=== PATIENT | male | born 1965 | race Two or more races ===

== ENCOUNTER → 2025-01-15 | Outpatient (CLI) | payer MEDICAID, SELFPAY ==
--- NOTE | 2025-01-15 | XR_ITS ---
Examination: Shoulder,right, 3 views Technique: Shoulder AP internal rotation, AP external rotation, Y view shoulder, 3 views Exam date and time :January 15, 2025 1051 hrs. Indications: Right shoulder pain beginning 3 months ago. Findings: Moderate osteopenia. Moderate narrowing glenohumeral joint. No shoulder fracture or dislocation. No calcific tendinitis. Impression:: Moderate narrowing glenohumeral joint.
--- NOTE | 2025-01-15 | XR_ITS ---
Examination: Foot bilateral, 6 views Technique: AP, oblique, lateral views each foot total 6 views Date and time of exam: January 15, 2025 1051 hrs. Indications: Bilateral foot pain beginning 3 months ago Findings: Mild to moderate bilateral narrowing first metatarsophalangeal joints. No fracture or dislocation involving either foot. 3 mm left plantar bony calcaneal spur. No cortical bone destruction. No opaque foreign bodies Impression: Bilateral mild to moderate first metatarsophalangeal joints.
== END | disposition home or self-care (01) ==
LOC: CDIM 10:20
PROVIDERS: PCP Nurse Practitioner; Referring Provider Nurse Practitioner; Visit Provider Nurse Practitioner
DX: M79.671 Pain in right foot (principal); M79.672 Pain in left foot; M25.811 Other specified joint disorders, right shoulder
CPT/HCPCS: 73030; 73630

== ENCOUNTER → 2025-03-19 | Outpatient (CLI) | payer MEDICAID, SELFPAY ==
--- NOTE | 2025-03-19 14:30 | ECHO_ITS ---
Transthoracic Echo Report Ht (in): 69 Wt (lb): 155 Exam Location: Echo Lab Status: Preadmit All Source Intelligence: LEONARDO Malin^^^^ Indications: Procedure Performed: BP: / HR: MEASUREMENTS (Male / Female) Normal Values 2D ECHO LV Diastolic Diameter PLAX 4.3 cm 4.2 - 5.9 / 3.9 - 5.3 cm LV Systolic Diameter PLAX 2.8 cm IVS Diastolic Thickness 0.7 cm 0.6 - 1.0 / 0.6 - 0.9 cm LVPW Diastolic Thickness 0.7 cm 0.6 - 1.0 / 0.6 - 0.9 cm LV Relative Wall Thickness 0.3 LVOT Diameter 2.0 cm Aortic Root Diameter 3.8 cm LA Systolic Diameter LX 2.9 cm 3.0 - 4.0 / 2.7 - 3.8 cm Ascending Aorta Diameter 2.7 cm DOPPLER AV Peak Velocity 106.8 cm/s AV Peak Gradient 4.6 mmHg AV Mean Gradient 3.5 mmHg AV Velocity Time Integral 22.6 cm LVOT Peak Velocity 89.9 cm/s LVOT Peak Gradient 3.2 mmHg LVOT Velocity Time Integral 22.9 cm AV Area Cont Eq vti 3.2 cm? AV Area Cont Eq pk 2.6 cm? TR Peak Velocity 202.5 cm/s TR Peak Gradient 16.4 mmHg RVOT Peak Velocity 56.9 cm/s FINDINGS Left Ventricle Normal left ventricular size, wall thickness, systolic function with no obvious regional wall motion abnormalities. There is grade II diastolic dysfunction of the left ventricle (pseudonormal filling pattern).the left ventricular ejection fraction is normal, estimated at 60-65%. Right Ventricle The right ventricle is normal in size and systolic function. The estimated right ventricular systolic pressure, 25 mmHg. Left Atrium The left atrium is normal by two-dimensional, color flow and Doppler imaging with no structural abnormalities, no thrombus formation present. Right Atrium The right atrium is normal by two-dimensional imaging, color flow and Doppler imaging with no structural abnormalities, no thrombus formation present. Atrial Septum The interatrial septum appears normal with no evidence of a shunt. Aorta The aorta is normal by two-dimensional, color flow and Doppler interrogation. Mitral Valve Mild mitral regurgitation. Mild mitral annular calcification. Aortic Valve The aortic valve is trileaflet and normal by two-dimensional, color flow and Doppler interrogation. There is no significant aortic valve regurgitation. Tricuspid Valve There is mild tricuspid valve regurgitation. Pulmonic Valve Trivial pulmonic valve regurgitation. Vessels The pulmonary artery appears normal. The inferior vena cava pulmonary and hepatic veins appear normal. Pericardium The pericardium is normal by two-dimensional imaging. There is no significant pericardial effusion. CONCLUSIONS Indication: Palpitations Normal LV size and function with EF 60-65%. Diastolic Dysfunction stage I. Normal RV size and function with estimated RVSP 25 mmHg. Trace MR & MAC. Mild TR Adair Echevarria (Electronically Signed) Final Date: 19 March 2025 18:33
== END | disposition home or self-care (01) ==
LOC: SDIM 14:28
PROVIDERS: Referring Provider Nurse Practitioner; Visit Provider Nurse Practitioner
DX: I08.1 Rheumatic disorders of both mitral and tricuspid valves (principal); I50.30 Unspecified diastolic (congestive) heart failure
CPT/HCPCS: 93306

== ENCOUNTER → 2025-07-05 | Outpatient (CLI) | payer MEDICAID, SELFPAY ==
--- NOTE | 2025-07-05 | XR_ITS ---
Examination: Sinus series 3 views TECHNIQUE: Linda Barone lateral sinus series 3 views Date and time: July 05, 2025 1143 hours INDICATIONS: Sinus pressure and pain months. 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
== END | disposition home or self-care (01) ==
LOC: CDIM 11:25
DX: J32.0 Chronic maxillary sinusitis (principal)
CPT/HCPCS: 70220